=== PATIENT | female | born 1955 | race Caucasian/White ===

== ENCOUNTER 2021-09-25 10:46 | Emergency (ER) | payer MEDICARE, SELFPAY ==
--- NOTE | ~2021-09-25 | CT_ITS ---
EXAMINATION: CT brain wo con DATE: 09/25/2021 12:28 INDICATION: Altered mental status TECHNIQUE: Computed tomography (CT) of the head was performed without intravenous contrast. Sagittal and coronal reconstructions were performed. Automated exposure control and iterative reconstruction t echnique were employed. The dose-length product was 605.33 mGy-cm. COMPARISON: None FINDINGS: There is vasogenic edema surrounding a 5.0 x 3.9 x 4.0 cm mass with heterogeneous attenuation situate d within the left cerebellar hemisphere which crosses the midline. There is effacement of the fourth ventricle and mild cerebellar tonsillar herniation with the right cerebellar tonsil extending 6-7 mm below the level of the inferior margin of the foramen magnum. There is likely secondary hydrocephalus with dilation of the third and left and right lateral ventricles. Periventricular decreased attenuat ion most prominently at the anterior and occipital horns of the lateral ventricles likely representin g transependymal flow. No acute intracranial hemorrhage, acute infarction or abnormal extra axial flu id collection. Mild mucosal thickening the left maxillary sinus. The orbits and mastoid air cells are normal. Intracranial calcified cerebral atherosclerosis is noted. IMPRESSION: 1. 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 2. Inferior cerebellar tonsillar herniation, effacement of the fourth ventricle and secondary obstruc tive hydrocephalus involving the lateral and third ventricles. Recommend urgent neurosurgical consult ation. Dr. Haider discussed these findings with Dr. Jacques at 12:35 PM. Reviewed, dictated and finalized at location B. UNICATION MANAGER IMPRESSION: 1. 5.0 cm likely malignant mass in the right cerebellar hemisphere which could be either primary or metastatic. 2. Inferior cerebellar tonsillar herniation, effacement of the fourth ventricle and secondary obstructive hydrocephalus involving the lateral and third ventri cles. Recommend urgent neurosurgical consultation. Dr. Haider discussed these findings with Dr. Jacques at 12:35 PM.
--- NOTE | ~2021-09-25 | XR_ITS ---
EXAMINATION: XR chest 1V portable INDICATION: Altered mental status TECHNIQUE: Portable AP chest at 1205 hours COMPARISON: None available FINDINGS: There are bilateral perihilar masses. There appears to be partial collapse of the right upp er lobe with rightward deviation of the lower trachea. Also noted is a smaller mass of the left upper lobe. There is no pleural effusion or pneumothorax. The heart size is normal. IMPRESSION: 1. Bilateral perihilar and left upper lobe masses concerning for primary bronchogenic carcinoma. Furt her evaluation with CT of the chest is recommended. Reviewed, dictated and finalized at location A. BLAST OPERATOR IMPRESSION: 1. Bilateral perihilar and left upper lobe masses concerning for primary bronch ogenic carcinoma. Further evaluation with CT of the chest is recommended.
[2021-09-25 11:08] VITALS: BP 134/83; PULSE 97; RESP 20; TEMP 37.1; O2SAT 97
[2021-09-25 11:29] VITALS: BP 134/83; PULSE 101; RESP 22; O2SAT 95
[2021-09-25 12:33] LABS: Basophils Absolute Auto 0.1 K/mm3 (0.0-0.1); Basophils Percent Auto 0.3 % (0.2-1.2); Hematocrit 41.5 % (37.0-47.0); Hemoglobin 13.8 g/dL (12.0-15.0); Immature Granulocyte Absolute 0.33 K/mm3 (0.00-0.031); Immature Granulocyte Percent A 2.2 % (0-0.5); Lymphocytes Absolute Auto 1.29 K/mm3 (0.9-3.2); Lymphocytes Percent Auto 8.7 % (18.3-44.2); Mean Corpuscular HGB Conc 33.3 g/dl (32-36); Mean Corpuscular Hemoglobin 28.6 pg (26-34); Mean Corpuscular Volume 85.9 fl (80-100); Monocytes Absolute Auto 0.8 K/mm3 (0.1-0.6); Monocytes Percent Auto 5.7 % (2.6-8.5); Neutrophils Absolute Auto 12.3 K/mm3 (1.3-6.7); Neutrophils Percent Auto 83.1 % (45.5-73.1); Platelet Count Result 79 k/mm3 (150-375); Red Blood Count 4.83 M/mm3 (4.2-5.4); White Blood Count 14.8 K/mm3 (4.5-10.0)
[2021-09-25 12:35] LABS: Add Urine Microscopic? YES; Amorphous Sediment Urine Moderate; Appearance Urine Turbid (Clear); Bacteria Urine 3+ /hpf; Bilirubin Urine Negative (Negative); Color Urine Yellow (Yellow); Glucose Urine UA Negative (Negative); Ketones Urine Negative (Negative); Leukocyte Esterase Ur 2+ LEU/UL (Negative); Mucus Urine Heavy /lpf; Nitrate Urine Negative (Negative); Protein Urine 2+ mg/dL (Negative); RBC Urine 21-50 /hpf (0-2); WBC Urine >75 /hpf
[2021-09-25 12:42] LABS: Ammonia < 9 umol/L (9-30); Lactic Acid Reflex 2.5 mmol/L (0.7-2.1)
[2021-09-25 12:43] LABS: Alanine Aminotransferase 97 U/L (4-35); Albumin Level 3.2 g/dL (3.5-5.1); Alkaline Phosphatase 154 U/L (38-126); Anion Gap 4 mmol/L (8-16); Aspartate Amino Transferase 73 U/L (14-36); Bilirubin,Total 1.3 mg/dL (0.2-1.3); Blood Urea Nitrogen 19 mg/dL (7-17); Calcium 8.2 mg/dL (8.4-10.2); Carbon Dioxide 28 mmol/L (22-30); Chloride 101 mmol/L (98-107); Estimated Glomerular Filt Rate > 60; Glucose 107 mg/dL (65-110); Potassium 3.2 mmol/L (3.4-5.0); Sodium 133 mmol/L (137-145)
[2021-09-25 12:59] LABS: Blood Urine Negative (Negative)
--- NOTE | 2021-09-25 13:03 | ED.GENADULT ---
HPI - General Adult General Chief complaint: Altered Mental Status Stated complaint: AMS/VOMITING Time Seen by Provider: 09/25/21 10:59 History of Present Illness HPI narrative: Patient is a 66-year-old female who presents from a long-term with reports of altered mental status after an episode of emesis earlier today. There is no real report as to why the patient is hospitalized at the long-term other than rehabilitation. Patient is awake and somewhat alert. She does not follow commands. She has history of uterine malignancy as well as liver cirrhosis. Related Data Allergies Allergy/AdvReac Type Severity Reaction Status Date / Time No Known Allergies Allergy Verified 09/25/21 11:30 Review of Systems Review of Systems: ROS unobtainable: Yes unobtainable due to medical condition PMFSH Past Medical History Medical History (Updated 09/25/21 @ 15:02 by Alan Jacques MD) Cerebellar mass Cirrhosis of liver Hydrocephalus Hypertension Uterine cancer Surgical History Surgical History (Updated 09/25/21 @ 15:02 by Alan Jacques MD) H/O: hysterectomy Social History Social History (Updated 09/25/21 @ 15:02 by Alan Jacques MD) Social History: Currently resides at [facility]. Exam Narrative: GENERAL: Chronically ill-appearing, well-nourished, and in no acute distress. HEAD: Normocephalic, atraumatic. EYES: PERRL and EOMI. ENT: Dry mucous membranes. CHEST: Clear to auscultation. No respiratory distress. HEART: Regular rate and rhythm. Normal peripheral pulses. ABDOMEN: Soft, nontender, nondistended. EXTREMITIES: Normal range of motion. No edema. SKIN: Warm, dry, no rash. Scattered old bruising to the arms and legs. NEURO: Awake and alert, does not follow commands. Moves all extremities. No facial droop. Course Reevaluation(s) Reevaluation #1: I have been on the phone with patient's POA Palmira Felix. 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 She has been in and out of rehabilitation facilities and only getting weaker. Patient is not receiving any chemotherapy but is instead receiving N-acetylcysteine as well as mushroom extract to treat her cancer. According to the POA patient began having more slurred speech and cannot move her legs anymore over the last weekend. Also over the weekend patient had started talking about how she wanted hospice care. We have discussed the critical nature of the patient's imaging findings and need for neurosurgical decompression. POAnnette prefers to go the route of hospice and comfort based care. They had been in contact with [facility] hospice through [facility]. They are going to make a phone call and call back shortly. We will contact our care worker. Date: 09/25/21 Time: 13:04 Reevaluation #2: Have been in touch with him at [facility] hospice in [place]. They have requested an H&P in the face sheet. They will be able to see the patient in 24 hours at the long-term. Patient has received IV fluid. She is required no additional frequent care such as suctioning/bagging/antiseizure medication. Patient will be discharged back to her long-term for hospice to evaluate her and attend to her needs. Patient's POA Palmira has been updated in regards to the care plan is verbalized understanding. Palmira was wondering if patient could also get a long-term change however this is something that will not be facilitated through the ER. She has verbalized understanding of this. Date: 09/25/21 Time: 14:09 Reevaluation #3: Discussed case with patient's physician Dr. Grissom who is in charge of reverse crossing. We discussed providing the patient with oral lorazepam for any potential seizure activity that could occur and he thinks is a good option. He requests that I write a physical prescription so that they can utilize order. Date: 09/25/21 Time: 15:04 Vital Signs Vital signs: Vital Signs Temperature 98.8 F 09/25/21 11:
[2021-09-25] MEDS: SODIUM CHLORIDE 0.9% IV 2,000 ML 999 ML IV CONT (13:09)
[2021-09-25 14:44] VITALS: BP 117/85; PULSE 93; RESP 14; O2SAT 99
[2021-09-25 15:30] LABS: Reflex Lactic Acid Yes or No Add Lactic
--- NOTE | 2021-09-25 15:51 | PCCCNOTE ---
Addendum entered by Michela Jo RN 09/25/21 17:05: Spoke with Andreas at [facility] patient will return tonight, per Andreas patient does not need rapid covid. Bedside RN Corine notified, and she told sister that ETA is 1800 for ambulance transfer. Addendum entered by Michela Jo RN 09/25/21 16:43: SisterPalmira at bedside had gotten lost, directions from [place] took her to [place]. Dr. Jacques at bedside to talk with sister Palmira. Advised that ambulance has been called and she can be with her sister while transport arrives. Per Palmira [facility] called her that paperwork that it had not been received. Fax showing a successful delivery. Confirmed fax with Dr. Jacques [phone]. Called to [facility] hospice at [phone], left message with exchange for return call to confirm fax #. Awaiting return call. Original Note: Late enty: Called for hospice consult, spoke with Dr. Jacques. Called to AWAIS and sister Palmira at [phone]. Palmira has already contacted [facility] hospice. Dr. Jacques speaking with them on another line. Palmira would prefer that another facility as not as happy about care. Explained that hospice will direct care and that per conversation with Dr. Jacques patient will return back to [facility] and admit with hospice. [facility] will admit tomorrow at [facility]. Explained finances to sister Palmira. Palmira to come now to see patient Will take about 30-45 minutes to get to [place]. Spoke with Palmira at 2pm. Called Andreas at [facility] no answer, called Judy no answer. Called to facility, and spoke with inside sales assistant she states that [facility] is on another call an will call me back. Jduy, called back advised that patient is coming back today and family has contacted [facility] and [facility] hospice has spoken with Dr. Jacques and [facility] will admit with hospice tomorrow. Judy would like updates, Faxed as requested, did not transmit via electronic hard copy fax'd. Fax'd Facesheet and H/P to Attn: Ricardo at [phone].
--- NOTE | 2021-09-25 16:45 | PC.NURSE ---
made contact with [facility] to transfer pt to back to [facility]. eta for parr is 1800
--- NOTE | 2021-09-25 18:14 | PC.NURSE ---
made contact with [facility] to get a new eta for pt. new eta is 1944
--- NOTE | 2021-09-25 18:24 | PC.NURSE ---
Patient's POA refused vital signs for patient.
== END 2021-09-25 19:51 ==
PROVIDERS: Emergency Provider Emergency Medicine; PCP Family Medicine
DX: G93.89 Other specified disorders of brain (principal); R41.82 Altered mental status, unspecified; G91.9 Hydrocephalus, unspecified; K74.60 Unspecified cirrhosis of liver; I10 Essential (primary) hypertension; Z85.42 Personal history of malignant neoplasm of other parts of uterus; R91.8 Other nonspecific abnormal finding of lung field
CPT/HCPCS: 36415; 70450; 71045; 80053; 81001; 82140; 83605; 85025; 87077; 87086; 87186; 96360; 96361; 99284; J7030